=== PATIENT | female | born 1980 | race Asian ===

== ENCOUNTER 2021-10-03 10:03 | Emergency (ER) | payer MEDICAID ==
[~2021-10-03] VITALS: Ht 160 cm; Wt 86.2 kg
[2021-10-03 15:19] VITALS: BP 98/57
[2021-10-03] MEDS ORDERED: NAP500T GT (16:02)
== END 2021-10-03 16:17 | disposition home or self-care (01) ==
LOC: ER 10:03
DX: M71.22 Synovial cyst of popliteal space [Baker], left knee (principal); M79.605 Pain in left leg; Z79.899 Other long term (current) drug therapy
CPT/HCPCS: 93971